=== PATIENT | female | born 1990 | race Two or more races ===

== ENCOUNTER 2019-07-24 02:37 | Inpatient (IN) | payer SELFPAY ==
[~2019-07-24] VITALS: Ht 162.6 cm; Wt 70.8 kg
[2019-07-24] MEDS ORDERED: LACTATED RINGER'S 1,000 ML IV SCH ×2 (03:17→23:17)
[2019-07-24] MEDS ORDERED: LACT. RINGERS/OXYTOCIN 20UNITS 1,000 ML IV SCH (03:17)
[2019-07-24] MEDS ORDERED: WITCH HAZEL-GLYCERIN PAD TOP PRN (03:30)
[2019-07-24] MEDS ORDERED: DERMOPLAST 60ML BOTTLE TOP PRN (03:30)
[2019-07-24] MEDS ORDERED: NALBUPHINE HCL 10 MG/1ml INJECTION IV PRN (03:30)
[2019-07-24] MEDS ORDERED: PENICILLIN G POT 5MIL/D5 50ML 50 ML IV ONE (03:30)
[2019-07-24] MEDS ORDERED: METHYLERGONOVINE MALEATE 0.2 MG/ML AMP IM PRN (03:30)
[2019-07-24] MEDS ORDERED: PHISODERM TOP SOLN 240ML BTL TOP PRN (03:30)
[2019-07-24] MEDS ORDERED: LIDOCAINE 2%HCL (LOCAL ANESTH.) INJ 20ML MDV ID ONE (03:30)
[2019-07-24] MEDS ORDERED: LABETALOL HCL 200 MG TAB ONE (04:14)
[2019-07-24] MEDS ORDERED: LABETALOL HCL 200 MG TAB PO SCH (04:15)
[2019-07-24 04:46] LABS: Basophils # (auto) 0 uL; Basophils % (auto) 0.3 % (0.0-2.0); Eosinophils # (auto) 0.1 uL; Eosinophils % (auto) 0.5 % (0.0-7.0); Hematocrit 40.2 % (36.0-46.0); Hemoglobin 13.1 g/dL (12.2-16.2); Lymphocytes # (auto) 2.4 uL; Lymphocytes % (auto) 21.3 % (10.0-50.0); Mean Corpuscular Hemoglobin 29.4 pg (28.0-32.0); Mean Corpuscular Hgb Conc. 32.5 g/dL (32.0-36.0); Mean Corpuscular Volume 90.4 fL (80.0-100.0); Monocytes % (auto) 8.7 % (0.0-12.0); Neutrophils % (auto) 69.2 % (37.0-80.0); Nucleated Red Blood Cells % 0.1 %; Platelet Count (auto) 152 10^3/uL (140-450); Red Blood Cells 4.45 10^6/uL (4.0-5.20); Red Cell Distribution Width 13.5 % (11.8-14.3); White Blood Cell 11.5 10^3/uL (4.4-10.8)
[2019-07-24 05:00] LABS: INR < 0.93 (0.9-1.15); Partial Thromboplastin Time 26.1 sec (23.64-32.05)
[2019-07-24] MEDS ORDERED: TERBUTALINE SULFATE 1 MG/ML 1ML VIAL SC ONE (05:00)
[2019-07-24 05:09] LABS: Albumin 2.7 g/dL (3.4-5.0); BUN/Creatinine Ratio 16.7; Calcium 8.4 mg/dL (8.5-10.1); Potassium 3.9 mmol/L (3.5-5.1)
[2019-07-24 05:12] LABS: Bilirubin, Total 0.2 mg/dL (0.2-1.0); Total Protein 6.3 g/dL (6.4-8.2)
[2019-07-24 05:35] LABS: Urine Bacteria FEW /hpf (None Seen); Urine Blood Negative /uL (Negative); Urine Mucus FEW (None Seen); Urine Specific Gravity 1.015 (1.001-1.035); Urine WBC 6 /hpf (0 - 5)
[2019-07-24 05:43] LABS: Alcohol, Urine < 3.0 mg/dL (0-5); Amphetamine Screen, Urine NEGATIVE (NEGATIVE); Barbiturate Scree,Urine NEGATIVE (NEGATIVE); Benzodiazephine Screen, Urine NEGATIVE (NEGATIVE); Cannabinoid Screen, Urine NEGATIVE (NEGATIVE); Cocaine Screen, Urine NEGATIVE (NEGATIVE); Opiate Scree,Urine NEGATIVE (NEGATIVE); Phencyclidine Screen, Urine NEGATIVE (NEGATIVE)
[2019-07-24] MEDS ORDERED: PREN-96 PO (05:51)
[2019-07-24] MEDS ORDERED: PENICILLIN G POTASSIUM 2,500,000 UNITS in D5W 5% 50 ML IV SCH (07:30)
[2019-07-24] MEDS ORDERED: ACETAMINOPHEN 325 MG TAB PO PRN (07:45)
--- NOTE | 2019-07-24 09:36 | NUR ---
Ambulation: Patient OOB with standby assistance by RN. Patient ambulated to bathroom with steady gait. Patient able to void without difficulty. [facility] teaching provided with returned demonstration by patient. Clean gown provided and bed linen changed. Patient ambulated back to bed with steady gait and no distress noted. Urine output 800 ml noted
[2019-07-24 11:32] VITALS: BP 130/74
[2019-07-24] MEDS: IBUPROFEN 600 MG TAB PO PRN ×2 (12:00→20:13)
[2019-07-24 15:00] VITALS: BP 135/78
[2019-07-24 18:30] VITALS: BP_SYST 133; BP_SYST 135; BP_DIAS 75
[2019-07-24 23:00] VITALS: BP 181/78
[2019-07-24 23:05] VITALS: BP 176/88
[2019-07-24] MEDS ORDERED: MAGNESIUM SULFATE 40MG/ML 1,000 ML IV ONE (23:28)
[2019-07-24] MEDS ORDERED: MAGNESIUM SULFATE 100 ML IV ONE ×2 (23:28→23:30)
[2019-07-25] VITALS (39 sets, daily range): BP systolic 118–174; BP diastolic 65–97
--- NOTE | 2019-07-25 00:30 | NUR ---
Fide Erickson, 16 FR placed. Pt. tolerated well. Addendum: 07/25/19 at 0502 by DEMETRICE HIGGINS RN RN Amended: Links added.
--- NOTE | 2019-07-25 04:08 | NUR ---
2302 Dr. Stein notified about increased Blood pressures, and pt. c/o headache. New order given, Magnesium Sulfate 4 gm bolus then Magnesium Sulfate 2 gm/hr maintenance dose, Keeping LR at 75 ml/hr, total IV fluids per hour 125 ml.
--- NOTE | 2019-07-25 04:12 | NUR ---
0000 Patient teaching about Magnesium Sulfate reason for the medication what it does and what it is for. Explained to pt. side effects of medication. Pt. verbalizes understanding that Dr. Stein want her to have this medication.
--- NOTE | 2019-07-25 04:15 | NUR ---
0002 Magnesium Sulfate 4 gm bolus started.
[2019-07-25 05:06] LABS: RPR Non Reactive (Non Reactive)
[2019-07-25 06:06] LABS: Rubella Antibodies, IgG 3.77 index (Immune >0.99)
--- NOTE | 2019-07-25 08:40 | NUR ---
DR. LEIJA AT PT BEDSIDE, STATUS UPDATE GIVEN, ALL TRENDING VITAL SIGNS REVIEWED, TRENDING HOURLY URINE OUTPUTS REVIEWED, PT IS ASYMPTOMATIC. ORDERS RECEIVED TO CONTINUE WITH CURRENT PLAN OF CARE. READ BACK AND VERIFIED ORDERS. WILL CARRY OUT. Addendum: 07/25/19 at 0844 by Nancy Weiner RN Amended: Links added.
[2019-07-25] MEDS ORDERED: LACTATED RINGER'S 1,000 ML IV SCH (08:47)
[2019-07-25] MEDS ORDERED: MAGNESIUM SULFATE 40MG/ML 1,000 ML IV SCH ×2 (08:47)
--- NOTE | 2019-07-25 08:47 | NUR ---
THERAPEUTIC MAGNESIUM LEVELS DR. LEIJA NOTIFIED OF TODAY'S THERAPEUTIC MAGNESIUM LEVEL OF 5.40. ORDERS RECEIVED FROM DR. LEIJA TO DECREASE MAGNESIUM INFUSION FROM 2 GRAMS TO 1 GRAM= 25ML/HR, AND LR INCREASED TO 100ML/HR, REPEAT THERAPEUTIC MAGNESIUM AT NOON. READ BACK AND VERIFIED ORDERS. WILL CARRY OUT.
--- NOTE | 2019-07-25 08:50 | NUR ---
DECREASED MAGNESIUM INFUSION DECREASED MAGNESIUM INFUSION PER DR. LEIJA ORDER TO 1 GRAM= 25ML/HR, AND LR INCREASED TO 100ML/HR. INFUSION RATES VERIFIED WITH Antonio DYER RN. WILL CONTINUE TO MONITOR.
--- NOTE | 2019-07-25 12:15 | NUR ---
PACKAGING TECH AT PT BEDSIDE FOR 1200 THERAPEUTIC MAGNESIUM DRAW.
--- NOTE | 2019-07-25 12:25 | NUR ---
DR. LEIJA NOTIFIED STILL PENDING THERAPEUTIC MAGNESIUM LEVEL, ALL TRENDING VITAL SIGNS GIVEN, ALL TRENDING URINE OUTPUT LEVELS GIVEN, PT IS ASYMPTOMATIC. WILL NOTIFY WHEN LEVEL IS RESULTED. WILL CONTINUE TO MONITOR.
--- NOTE | 2019-07-25 13:30 | NUR ---
DR. LEIJA NOTIFIED OF THERAPEUTIC MAGNESIUM LEVEL OF 4.80, TRENDING VITAL SIGNS AND TRENDING URINE OUTPUTS GIVEN, PT IS ASYMPTOMATIC. ORDERS RECEIVED FROM DR. LEIJA TO CONTINUE MAGNESIUM INFUSION OF 1GM/HR AT 25ML/HR, LR AT 100ML/HR, BEDREST, AND SCHEDULED THERAPEUTIC MAGNESIUM LEVEL AT 1800. READ BACK AND VERIFIED ORDERS. WILL CONTINUE TO MONITOR.
[2019-07-25] MEDS: IBUPROFEN 600 MG TAB PO PRN (15:32)
--- NOTE | 2019-07-25 17:22 | NUR ---
PT STATES SHE NEEDS TO TAKE A BOWEL MOVEMENT, PT ASSISTED ONTO A BEDPAN. NO DISTRESS NOTED.
--- NOTE | 2019-07-25 17:28 | NUR ---
UPDATE ON PT STATUS. DR. LEIJA UPDATED ON PT STATUS. DR. LEIJA NOTIFIED OF ALL TRENDING VITAL SIGNS AND TRENDING URINE OUTPUTS GIVEN, PT IS ASYMPTOMATIC. DR. LEIJA STATED SHE WANTS TO BE NOTIFIED OF 1800 THERAPEUTIC MAGNESIUM RESULTS AND THEN AT 2200 WILL RE-EVALUATE PT FOR POSSIBLE D/C OF MAGNESIUM INFUSION AND DOUGHERTY CATHETER REMOVAL. WILL NOTIFY COMPLIANCE COORDINATOR RN. WILL CONTINUE TO MONITOR.
--- NOTE | 2019-07-25 17:43 | NUR ---
PT USING BEDPAN DURING BLOOD PRESSURE ASSESSMENT, WILL REASSESS. Addendum: 07/25/19 at 1751 by Nancy Weiner RN BP WAS 155/87 HR 80
--- NOTE | 2019-07-25 17:45 | NUR ---
BEDPAN REMOVED, PT UNABLE TO MAKE BOWEL MOVEMENT AT THIS TIME. [facility] C[facility] PERFORMED, NEW PAD, ICE PACK, HAM AND GOWN PROVIDED.
--- NOTE | 2019-07-25 17:58 | NUR ---
PT SITTING SEMIFOWLERS IN BED, PILLOWS PLACED UNDER PTS BILATERAL ARMS FOR COMFORT. PTS RESPIRATION EVEN AND NONLABORED, LUNGS SOUNDS CLEAR BILATERAL UPPER AND LOWER LOBES, DOUGHERTY CATHETER PATENT AND DRAINING CLEAR YELLOW URINE TO GRAVITY, SCD'S ON COMPRESSING BILATERAL LOWER EXTREMITIES, NO PERIPHERAL EDEMA NOTED ON BILATERAL UPPER OR LOWER EXTREMITIES, PT IS ASYMPTOMATIC OF ANY S/S OF MAGNESIUM TOXICITY. PTS IV SITE IS CLEAN, DRY, AND INTACT, NO EVIDENCE OF REDNESS OR INFILTRATION NOTED. BED IS LOCKED AND IN LOWEST POSITION, CALL LIGHT AND PERSONAL BELONGINGS WITHIN REACH. PT DENIES ANY PAIN.
--- NOTE | 2019-07-25 18:25 | NUR ---
REPORT PT REPORT GIVEN ON STABLE PATIENT TO Bernard HIGGINS RN AT PT BEDSIDE, MAGNESIUM INFUSION RATE 25ML/HR, 1GM ON IV PUMP VERIFIED AT PT BEDSIDE, NO DISTRESS NOTED, RELINQUISHED CARE.
--- NOTE | 2019-07-25 20:55 | NUR ---
Magnesium level completed by lab and called to Dr. Stein. Reviewed blood pressures all vital signs, and shift assessment, new orders given.
[2019-07-26 02:00] VITALS: BP 136/87
--- NOTE | 2019-07-26 06:30 | NUR ---
REPORT: REPORT RECEIVED FROM [employer]CREWMAN RN TO RESUME CARE OF PT.
[2019-07-26 07:00] VITALS: BP 144/80
--- NOTE | 2019-07-26 07:00 | NUR ---
OPEN: ASSESSMENT COMPLETE. SEE NURSING FLOW SHEET FOR UPDATED DETAILS.
[2019-07-26 08:15] VITALS: BP 139/87
--- NOTE | 2019-07-26 08:48 | NUR ---
MD VISIT: DR. LEIJA IN AT BEDSIDE. SPOKE TO PATIENT IN DETAIL ABOUT STATUS AT TIME AND FULLY AWARE OF STATUS AT TIME. MD DID OK FOR DISCHARGE HOME TODAY AND PATIENT AWARE. MD DID UPDATE PATIENT TO FOLLOW UP IN OFFICE IN 1 WEEK. ALL QUESTIONS AND CONCERNS ADDRESSED. CONTINUE CARE.
--- NOTE | 2019-07-26 08:50 | NUR ---
BLOOD PRESSURE: NOTIFIED DR. LEIJA THAT BLOOD PRESSURE WAS 144/80 THIS AM AND REPEAT OF 139/87. OK FOR PT TO BE DISCHARGED HOME TODAY STILL.
--- NOTE | 2019-07-26 10:00 | NUR ---
Teaching: Reviewed information in [facility] booklet with patient. Discussed benefits of and risks associated with not . Discussed different positions, proper latch, feeding cues, and baby-led . Provided information of medication side effects related to . All questions and concerns addressed at this time. Patient verbalized understanding of information.
--- NOTE | 2019-07-26 10:45 | NUR ---
FAMILY: FAMILY IN AT BEDSIDE.
[2019-07-26 11:00] VITALS: BP 138/75
--- NOTE | 2019-07-26 11:30 | NUR ---
IV: IV REMOVED TO RIGHT FOREARM, 20G WITH CATHETER FULLY INTACT. PT TOLERATED WELL.
--- NOTE | 2019-07-26 12:20 | NUR ---
Discharge: Discharge instructions given as ordered. Pt encouraged to follow up with SITE INTERPRETER as instructed. All questions and concerns addressed. Patient verbalized understanding. Medication reconciliation completed and copy given to patient. All required/requested vaccines up to date and copies of vaccinations given to patient. Patient encouraged to prepare to depart unit.
[2019-07-26 12:40] VITALS: BP 138/76
--- NOTE | 2019-07-26 12:40 | NUR ---
Discharge: Patient ambulated all personal belongings, accompanied by staff and family members. No distress noted at time of departure, no adverse changes in status since initial assessment.
== END 2019-07-26 12:40 | disposition home or self-care (01) | DRG 807 ==
LOC: LDRP 02:37 → OBSVTOIN 02:37 → LDRP 04:28
PROVIDERS: ADMIT Obstetrics & Gynecology; ATTEND Obstetrics & Gynecology
PROC: 10D07Z6 Extraction of Products of Conception, Vacuum, Via Natural or Artificial Opening (ICD-10-PCS; principal; 2019-07-24)
PROC: 0KQM0ZZ Repair Perineum Muscle, Open Approach (ICD-10-PCS; 2019-07-24)
DX: O69.1XX0 Labor and delivery complicated by cord around neck, with compression, not applicable or unspecified (principal); Z37.0 Single live birth; O70.1 Second degree perineal laceration during delivery; Z3A.37 37 weeks gestation of pregnancy; O40.3XX0 Polyhydramnios, third trimester, not applicable or unspecified
CPT/HCPCS: 36415; 51702; 59025; 59409; 76805; 80053; 80307; 81001; 83735; 84112; 84550; 85025; 85610; 85730; 86592; 86703; 86762; 86850; 86900; 86901; 87340; 94760; 96361; 96365; 96366; G0378; J2540; J2590; J7060